=== PATIENT | female | born 1955 | race Caucasian/White ===

== ENCOUNTER 2017-01-01 13:14 | Observation (INO) | payer BC ==
[~2017-01-01] VITALS: Ht 172.7 cm; Wt 69.8 kg
--- NOTE | ~2017-01-01 | DS ---
PATIENT'S NAME: ARJUN [facility] AGE: 61 Y [address] ROOM: [address] [address] LOCATION: GPCU ADMIT DATE: 01/01/2017 Discharge Summary DISCHARGE DATE: 01/02/2017 FAMILY PHYSICIAN: Avinash Oviedo MD ATTENDING PHYSICIAN: Claudio Nolan PRINCIPAL DISCHARGE DIAGNOSIS: Atypical chest pain. SECONDARY DIAGNOSES: 1. Coronary artery disease, mild and nonobstructive. 2. Tobacco addiction. 3. Hypertension. 4. Gastroesophageal reflux disease. 5. Chronic obstructive pulmonary disease. 6. Asthma. CONSULTATIONS: Cardiology, Dr. Leah Mansfield on 01/01/2017. PROCEDURES: Echocardiogram on 01/01/2017. BRIEF SUMMARY OF RESULTS: 1. Normal left and right ventricular size and systolic function with estimated left ventricular ejection fraction of 70% to 75%. 2. Mild concentric left ventricular hypertrophy. 3. Mild dilatation of right atrium. 4. Dilated IVC with poor inspiratory collapse consistent with an elevated right atrial pressure. 5. Mild pulmonary hypertension with right ventricular systolic pressure of 41 mmHg. 6. Cardiac catheterization on 01/02/2017 by verbal report from Dr. Canela. The patient has mild nonobstructive coronary artery disease. BRIEF HISTORY: Ms. Arellano is a 61-year-old, female who presented to [facility] on 01/01/2017 after she presented to an [facility] with chest pain of 1 day duration. She describes the pain as substernal, woke her from sleep on the , persisted during the day and radiated to her back centrally. When I saw her today, she has pain still 1/10 to 2/10 and she points to the right side of the mid to lower sternum and says that there is a pressure like a brick there, dull and constant, but the pain did get somewhat better after GI cocktail. Please review the H and P for further details of her presentation. She had echocardiogram with results as above. She had an essentially negative cath today. In addition, cholesterol total is 197, triglycerides 52, HDL 102, LDL 85, and VLDL 10. She has not been taking a statin at home and has not had PATIENT'S NAME: ARJUN [facility] AGE: 61 Y [address] ROOM: [address] [place], [place] [address] [facility] ADMIT DATE: 01/01/2017 Discharge Summary DISCHARGE DATE: 01/02/2017 FAMILY PHYSICIAN: Avinash Oviedo MD ATTENDING PHYSICIAN: Claudio Nolan a history of high cholesterol. She does smoke, but less than half a pack a day at this time. I did reiterate the importance of tobacco cessation especially for preventing progression of coronary artery disease, development of peripheral vascular disease and any further pulmonary complications. The patient seemed to be receptive to this information and asked her to be agile scrum coach for her as she has already stopped smoking 3 years ago. The patient also has hypertension, GERD and COPD. It is not really an issue during the hospitalization. She will continue on the same medicine for these. INSTRUCTIONS ON DISCHARGE: 1. Diet healthy, fat loss of veggies, low carb. She apparently has lost 50 pounds in the last 3 years with supplements that she takes. 2. Activity as tolerated. She should walk at least 30 minutes every day. 3. Followup, she should see her primary care physician Dr. Oviedo, who is in her [place] within 1 week of discharge. MEDICATIONS AT TIME OF DISCHARGE: 1. Aspirin 81 mg p.o. daily. 2. Hydrochlorothiazide 12.5 mg p.o. daily. 3. Lasix 20 mg p.o. daily. 4. Micardis 80 mg p.o. daily. 5. Plexus Slim which is her weight loss medicine which she reports these are all natural. She has been taking this for 3 years. 6. Proventil 1 to 2 puffs every 4 hours p.r.n. dyspnea. 7. Breo Ellipta 1 puff daily. 8. Flonase 1 spray p.r.n. CONDITION AT DISCHARGE: Good. Did do smoking cessation, counseling and education. Time spent greater than 30 minutes. MANSI POE MD LM/riccil /[id number] d: 01/03/177 t: 05/12/17 1809, DISCHARGE SUMMARY
--- NOTE | ~2017-01-01 | CATH ---
Cardiac Diagnostic Report Demographics Patient Name ARJUN Julio Gender Female Date of 1955 Age 61 year(s) Patient Number [id number] Date of Study 01/02/2017 Visit Number [id number] Room Number G6[address] [place] [id number] Ht 172.72 cm Wt 68.95 kg Referring Judith Curtis Primary Physician Physician Performing [place]en Secondary Physician Physician Leah GANNON Diagnostic [facility] Assisting Physician Physician Leah GANNON Interventional Physician Winemaker Physician Findings and Conclusions Diagnostic Findings and Conclusion Mild non obstructive CAD. Calcified prox LAD without any luminal obstruction, there is 20% lesions in mid LAD, Circ and OM 1 branch. LVEDP is 12 mmHg. Diagnostic Recommendations Continue regular medications. Patient has been instructed to not lift anything more than 5 pounds for 1 week. I will plan on seeing the patient back in 4 week(s). Recommend work up for non-cardiac causes of symptoms. Optimization of medical therapy as an outpatient. Procedure Description The patient was brought to the diagnostic cardiac catheterization-EP laboratory in the fasting, non-sedated state. Informed consent was obtained in the written and verbal form after the risks and benefits were explained. The patient had no further questions and agreed to proceed. The planned puncture-incision site(s) were shaved and prepped with ChloraPrep and draped in the usual sterile manner. Conscious sedation, supplemental oxygen, and pain control medications were delivered by a registered nurse under physician guidance. Surface ECG rhythm, blood pressure measurement, and pulse oximetry were monitored throughout the procedure. Arterial access. The access site was infiltrated with lidocaine. The vessel was entered with the Seldinger technique. A sheath was advanced into the vessel and used for catheter placement. Selective right coronary angiography. A catheter was advanced into the right coronary vessel ostium under fluoroscopic guidance. Contrast was injected by hand. Images were obtained in multiple projections. Selective left coronary angiography. A catheter was advanced into the left coronary vessel ostium under Fluoroscopic guidance. Contrast was injected by hand. Images were obtained in multiple projections. Left heart catheterization. A catheter was advanced across the aortic valve to the left ventricle under fluoroscopic guidance. Resting hemodynamics were obtained. Arterial artery hemostasis was achieved. The patient was transferred to a regular nursing floor via cart accompanied by a nurse. The patient left the laboratory in stable condition. Diagnostic Cath Status: Urgent Procedure Procedure Type Diagnostic procedure:Angiography:, Coronary Angios w/LHC Indications: Shortness of breath and Unstable angina. The procedure was explained in detail to the patient. Risks, complications and alternative treatments were reviewed. Written consent was obtained. Medications Reviewed with Patient prior to Procedure. Angiographic Findings Dominance: Right Cardiac Arteries and Lesion Findings LMCA: Normal (0% Stenosis). LAD: LAD prox calcified. Diag mild luminal irregularities. Lesion on Mid LAD: Mid subsection.30% stenosis . LCx: Lesion on Mid CX: Mid subsection.20% stenosis . Lesion on 1st Ob Farrah: Mid subsection.20% stenosis . RCA: Normal (0% Stenosis). Coronary Tree Procedure Data Procedure Date Date: 01/02/2017Start: :02 AMEnd: 09:19 AM Entry Locations - Retrograde Percutaneous access was performed through the Right Radial artery (Primary location). A 6 Fr sheath was inserted. Unsuccessful closure attempt was performed using: an R band. Hemostasis was successfully obtained using Mechanical Compression. Closure Comments: R band applied to site by . Procedure Medications Order and Administration + + + + + !Time !Medication !Dosage !Route ! + + + + + !01/02/2017 08:57 AM !Versed !1 mg !I.V. ! + + + + + !01/02/2017 08:57 AM !Fentanyl !50 mcg !I.V. ! + + + + + !01/02/2017 09:04 AM !Radial Verapamil !2.5 mg !I.A. ! + + + + + !01/02/2017 09:07 AM !Heparin (ACC_3) !4000 units !I.V. bolus ! + + + + + !01/02/2017 09:12 AM !Nitroglycerin !10 mcg/min !I.V. drip ! + + + + + !01/02/2017 09:20 AM !Nitroglycerin !5 mcg/min !I.V. drip ! + + + + + Devices Used - A5 Fr. BS JR 4 Diag. Catheterwas used for:Right coronary angiography. - A5 Fr. BS JL 3.5 Diag. Catheterwas used for:Left coronary angiography. Contrast Material - Isovue 43142 ml Fluoroscopy Time: Diagnostic: 1:54 minutes. Total: 1:54 minutes. Fluoroscopy Dose: Diagnostic: 294 mGy. Total: 294 mGy. Estimated Blood Loss: 10 ml. Medical History Performed Procedures and Imaging Results - No ACC stress or imaging studies were performed. Risk Factors The patient risk factors include:hypertension, insulin-treated diabetes mellitus, chronic lung disease, last creatinine: 0.7 mg/dl, creatinine clearance: 94.19 ml/min and former tobacco use. Admission Data Admission Date: 01/01/2017 Admission Time: 01:14 PM Admit Source: [facility] Insurance Payors: Private health insurance. Admission Medications + +------+------+ + + + + !Medication !Dosage!Times !Last !Last !Administered !Comments ! ! ! !Per !Delivery !Delivery ! ! ! ! ! !Day !Date !Time ! ! ! + +------+------+ + + + + !Aspirin ! ! ! ! ! ! ! !(any) ! ! ! ! ! ! ! + +------+------+ + + + + !Statin (any)! ! ! ! ! ! ! + +------+------+ + + + + !MICHELLE ! ! ! ! ! ! ! !Inhibitor ! ! ! ! ! ! ! !(any) ! ! ! ! ! ! ! + +------+------+ + + + + !Beta [place]! ! ! ! ! ! ! !(any) ! ! ! ! ! ! ! + +------+------+ + + + + !ARB (any) ! ! ! ! ! ! ! + +------+------+ + + + + Clinical Evaluation Leading to Procedure - The patient's CAD presentation was assessed as: Unstable angina. - The patient's anginal syndrome during the past two weeks was assessed as: Class IV according to the [place] Cardiovascular Society Classification System (CCS). Anti-anginal medications were prescribed during the past two weeks. The medication is: Beta Blockers. Hemodynamics Condition: Rest O2 Consumption: Estimated: 178.67Heart Rate: 78 bpm Pressures (mmHg) +-----+ + !Site !Pressure ! +-----+ + !LV !136/6 ,12 ! +-----+ + !LV !140/6 ,12 ! +-----+ + !AO !140/68 (98) ! +-----+ + !LV !142/7 ,11 ! +-----+ + !AO !149/75 (106) ! +-----+ + Valve Gradients and Areas + +---------+---------+---------+ +---------+ + !Valve !Peak !Mean !Area !Index !Flow !Source ! + +---------+---------+---------+ +---------+ + !Aortic !2 !0 ! ! ! ! ! + +---------+---------+---------+ +---------+ + !Aortic !2 !0 ! ! ! ! ! + +---------+---------+---------+ +---------+ + Shunts Oxygen Values O2 Capacity 156.4 O2 Consumption 178.67 Signatures dtt: LEAH DAVEY dtd: 01/02/17 0902 Physician Self Edit
--- NOTE | ~2017-01-01 | HP ---
PATIENT'S NAME: MICHELLE DÍAZ [facility] AGE: 61 Y [address] ROOM: [place] [address] [facility] ADMIT DATE: 01/01/2017 History & Physical DISCHARGE DATE: FAMILY PHYSICIAN: PHYSICIAN, UNKNOWN ATTENDING PHYSICIAN: Claudio Nolan DATE OF SERVICE: CHIEF COMPLAINT: Atypical chest pain. HISTORY OF PRESENTING ILLNESS: This is a 61-year-old white female with previous history of COPD, hypertension, and ongoing tobacco dependence, who was transferred to [facility] from [place] with chest pain that began yesterday. She describes a substernal pressure, that began when she awoke from sleep yesterday morning. It persisted over the course of the day and seemed to radiate through to her back. States it seems to be centered in her spine. She does admit to feeling weak and clammy and did have some sweats intermittently over the course of the day. She has been coughing, but it is nonproductive. She denies any associated nausea and has not had any problems with chewing or swallowing. Today, because the pain persisted, she presented to the [place] [facility]. Initial cardiac enzymes were negative, but her clinical history was felt to be suspicious. Dr. Canela, diesel engine fitter, was contacted by telephone, and it was requested she be transferred here for definitive evaluation and management. She denies fevers but has had some minor chills and sweats as described above. She admits that she has not actually taken her temperature. No headaches, but she does feel a little dizzy. She has not fallen or lost consciousness. She denies blurred vision or scotomata. She denies other back pain and no abdominal pain. Her appetite has been good otherwise. She stools and voids normally. Denies any dysuria, frequency, urgency, or hematuria. No numbness or tingling in her lower extremities, but she does have some tingling in her right arm. She does intermittently have some swelling in her feet. She takes a diuretic for that. She has been otherwise compliant with her medications. ALLERGIES: NO KNOWN DRUG ALLERGIES. ILLNESSES: 1. Essential hypertension. 2. COPD. 3. Tobacco dependence. PATIENT'S NAME: MICHELLE DÍAZ [facility] AGE: 61 Y [address] ROOM: [address] [place], [place] [address] LOCATION: GPCU ADMIT DATE: 01/01/2017 History & Physical DISCHARGE DATE: FAMILY PHYSICIAN: PHYSICIAN, UNKNOWN ATTENDING PHYSICIAN: Claudio Nolan 4. History of DVT. 5. History of ovarian cyst, status post resection and hysterectomy. 6. Appendicitis with subsequent appendectomy in 2016. CURRENT MEDICATIONS: 1. Albuterol HFA 2 puffs p.o. q.6 hours p.r.n. 2. Breo Ellipta 100/25 one puff p.o. daily p.r.n. 3. Lasix 20 mg p.o. daily p.r.n. 4. Micardis HCT 80/12.5 one tab p.o. daily. FAMILY HISTORY: Significant for lung cancer in her father, who suffered renal failure and a stroke. Mother also had kidney cancer and suffered a stroke. REVIEW OF SYSTEMS: As per HPI. All other organ systems reviewed and are negative. She did have a negative stress test about 5 years ago, which sounds like treadmill Cardiolite. PHYSICAL EXAMINATION: VITAL SIGNS: Temperature is 98.3, pulse 107, respirations 17, blood pressure 150/91, O2 saturation 96% on room air. GENERAL: She is frail, anxious, but cooperative, lying in the bed, in no acute distress. SKIN: Supple. [place], warm, dry. No obvious rashes. HEENT: Otherwise normocephalic. Sclerae nonicteric. Pupils equal, round, and reactive to light and accommodation. Extraocular movements appear intact. Nasal turbinates normal in appearance. Oropharynx clear. Mucous membranes are pink and moist. NECK: Supple. No masses or adenopathy. No thyromegaly. No JVD. No carotid bruits are heard. CHEST: Chest wall is symmetrical. HEART: Tachycardic but regular. LUNGS: Diminished with long expiratory phase. No michelle wheezes. No rales or consolidation. ABDOMEN: Soft, protuberant, nontender. Bowel sounds present. No mass. No hepatosplenomegaly. and RECTAL: Not done. EXTREMITIES: Display trace pitting edema. No cyanosis. NEUROLOGICAL: Cranial nerves 2 through 12 appear grossly intact. Sensation appears normal. Strength is 5/5 bilaterally in upper and lower extremities. DTRs are 1 to 2+ symmetrical. Gait is not observed. LABORATORY AND X-RAY DATA: A 12-lead EKG shows sinus tachycardia without any acute ST abnormalities. PATIENT'S NAME: MICHELLE DÍAZ [facility] AGE: 61 Y [address] ROOM: [address] [place], [place] [address] [facility] AD[facility] DATE: 01/01/2017 History & Physical DISCHARGE DATE: FAMILY PHYSICIAN: PHYSICIAN, UNKNOWN ATTENDING PHYSICIAN: Claudio Nolan Cardiac enzymes revealed a troponin I 0.1, CPK of 57, CK-MB 0.6. A CBC was significant for an elevated white blood cell count of 16.2, hemoglobin 13.3, hematocrit 40.0, platelets 268. Chemistries revealed BUN and creatinine of 18 and 0.81 respectively, sodium and potassium of 137 and 4.9, chloride and CO2 of 102 and 22, calcium is 9.9. AST and ALT of 22 and 24 respectively, bilirubin is 0.6. A D-dimer was within the normal range. CT scan of the chest with IV contrast revealed multiple subcentimeter pulmonary nodules bilaterally without any evidence for consolidations or pulmonary edema. Incidentally noted is a left liver lobe lesion at 1.1 cm. Clinical followup and 12-month CT, re-examination in 12 months was recommended. ASSESSMENT AND PLAN: 1. Chest pain. Intermediate suspicion for acute coronary syndrome. We will admit for observation. She had been placed on the chest pain pathway. We will monitor on telemetry and obtain serial enzymes. She will be maintained on heparin and nitroglycerin drip for now. Dr. Canela, Cardiology, is already aware of the case and will be formally consulted to consider investigational options. We will plan for echo in the morning. We will also plan to get some additional metabolic workup and lipid panel and follow up on that when the results are known. In the meantime, plan to resume aspirin 81 mg daily, continue with beta-shawn therapy, angiotensin receptor shawn therapy, and initiate statin therapy with Lipitor. We will manage her pain symptomatically and look for other diagnostic possibilities. 2. Essential hypertension. Appears to be adequately controlled. We will continue her home antihypertensive regimen, add the beta-shawn therapy carefully and monitor. 3. Chronic obstructive pulmonary disease without oxygen dependence, currently clinically stable. We will encourage good pulmonary hygiene. Urged smoking cessation (see below). 4. Multiple pulmonary nodules. Too small to characterize. Differential diagnosis remains relatively broad at this point. She is aware of them as of now. We will plan for clinical followup and perhaps repeat CT scan imaging in 6 months to a year as described above. 5. Tobacco dependence. Discussed smoking cessation. She is in a precontemplative phase. Discussed rationale and treatment options, and she expressed that she might be interested. 6. History of deep venous thrombosis. No clinical evidence of that now. In view of the negative D-dimer and low clinical suspicion, we will hold off on any additional imaging studies. 7. Deep venous thrombosis prophylaxis. She will be fully heparinized at least for now, and we will plan to mobilize her once she is physically able. PATIENT'S NAME: MICHELLE DÍAZ [facility] AGE: 61 Y [address] ROOM: [place] [address] LOCATION: [facility] ADMIT DATE: 01/01/2017 History & Physical DISCHARGE DATE: FAMILY PHYSICIAN: PHYSICIAN, UNKNOWN ATTENDING PHYSICIAN: Claudio Nolan MD DAVID GARCIA/daria /[id number] D: [id number] T: [id number] HISTORY & PHYSICAL
--- NOTE | ~2017-01-01 | ECHO ---
Transthoracic Echocardiography Report (TTE) Demographics Patient Name MICHELLE DÍAZ Date of Study 01/01/2017 Patient Number [id number] Visit Number [id number] Date of 1955 Room Number [address] Gender Female Number Age 61 year(s) Referring Ovidio Pearl MD Charge Master Coordinator Sabrina Martinez, Physician RT,RVT,RDCS Physician Interpreting Shyla Lynn MD Sourcing Specialist Physician Supervising Ordering Shyla Lynn MD, MD/MLP Physician Nurse Stress Crown Attacher Conclusions Contractility Score Summary Normal Left Ventricular contractility was noted. Summary Normal LV/RV size and systolic function. The estimated left ventricular ejection fraction is 70-75%. Mild concentric left ventricular hypertrophy. The right atrium is mildly dilated. Dilated IVC with poor inspiratory collapse consistent with elevated RA pressure. There is mild pulmonary hypertension. The pulmonary pressure (RVSP) is 41 mmHg. Procedure Type of Study TTE procedure:2D Echocardiogram, M-Mode, Doppler , Color Doppler. Procedure Date Date: 01/01/2017 Start: 03:52 PM Study Location: Inpatient Portable Technical Quality: Good visualization Indications:Chest pain. Appropriate Use Criteria: 9 Patient Status: Routine HR: 86 bpm BP: 151/67 mmHg M-Mode/2D Measurements LV Diastolic Dimension: 3.94 cm LV Systolic Dimension: 2.13 cm LV Septum Diastolic: 1.24 cm LV Septum Systolic: 1.1 cm LV PW Diastolic: 1.39 cm LV PW Systolic: 1.87 cm Cardiac Output: 8.29 l/min AO Root Dimension: 2.6 cm RV Diastolic Dimension: 3.13 cm LA Dimension: 3.7 cm EF Estimated: 70 % LA volume: 50 ml RV Base: 3.5 cm LVOT: 1.9 cm RV Mid: 2.7 cm LVOT VTI: 34 cm RV Length: 5.4 cm LV Stroke volume: 96.35 ml Doppler Measurements AV Peak Velocity: 2.01 m/s MV Peak E-Wave: 0.78 m/s AV Peak Gradient: 16.16 mmHg MV Peak A-Wave: 0.79 m/s AV Mean Gradient: 7 mmHg MV E/A Ratio: 0.99 LVOT Peak Velocity: 1.89 m/s MV P1/2t: 93 msec TR Gradient:24.6 mmHg PV Peak Velocity: 1.19 m/s Estimated RAP:10 mmHg PV Peak Gradient: 5.66 mmHg Estimated RVSP: 35 mmHg Estimated PASP: 34.6 mmHg E' Septal Velocity: 0.09 m/s A' Septal Velocity: 0.1 m/s MV E/E' Ratio: 8.6 Findings Left Ventricle Mild concentric left ventricular hypertrophy. Right Ventricle Normal right ventricle structure and function. Left Atrium Normal left atrial size. Right Atrium The right atrium is mildly dilated. Dilated IVC with poor inspiratory collapse consistent with elevated RA pressure. Mitral Valve Normal mitral valve structure and function. Aortic Valve Normal aortic valve structure and function. Tricuspid Valve There is mild pulmonary hypertension. The pulmonary pressure (RVSP) is 41 mmHg. Pulmonic Valve Normal pulmonic valve structure and function. Pericardial Effusion No evidence of pericardial effusion. Miscellaneous Visualized portions of the aortic root and ascending aorta appear normal in size. Pleural Effusion No evidence of pleural effusion. Contractility Score LV regional wall motion:(0-Non visualized 1-Normal 2-Hypokinesis 3-Akinesis 4-Dyskinesis 5-Aneurysm) Signature dtt: MULU DAVEY dtd: 01/01/17 1552 Physician Self Edit
--- NOTE | ~2017-01-01 | CON ---
PATIENT'S NAME: ARJUN [facility] Nori [facility] AGE: 61 Y [address] ROOM: [place] [address] LOCATION: GPCU ADMIT DATE: 01/01/2017 Consultation DISCHARGE DATE: FAMILY PHYSICIAN: PHYSICIAN, UNKNOWN ATTENDING PHYSICIAN: Claudio Nolan DATE OF CONSULTATION: 01/01/2017 REFERRING PHYSICIAN: LEAH DAVEY MD REASON FOR CARDIOLOGY CONSULTATION: Chest pain. HISTORY OF PRESENT ILLNESS: This is a 61-year-old female, who initially presented to the [place] [facility] with complaints of constant chest pain over the last 24 hours. She states the pain began in her anterior chest and has continued to progressively worsen and is now radiating to her posterior back between her shoulder blades. She described the pain as heavy and constant. She did undergo chest x-ray as well as CT in [place]. Her cardiac enzymes here are negative for any acute changes, and her EKG is stable without any acute ST changes noted. She denies dizziness, headache, nausea, vomiting, or palpitations. She does have complaints of cough and congestion. PAST MEDICAL HISTORY: 1. Hypertension. 2. COPD and asthma. 3. Chronic tobacco abuse. 4. GERD. 5. Crohn disease. 6. History of kidney stones. 7. History of DVT with the last known one in 1989. PAST SURGICAL HISTORY: 1. Hysterectomy. 2. Tonsillectomy. 3. Appendectomy. FAMILY HISTORY: Both of her parents had a history of stroke. Her father had a history of lung cancer, and her mother had a history of renal cancer. SOCIAL HISTORY: The patient is a current daily cigarette smoker. She has smoked 1 pack per day for the last 45 years. She also admits to alcohol use on 7 days a week, and on those days, she will have up to 2 drinks total. She denies illicit PATIENT'S NAME: ARJUN [facility] AGE: 61 Y [address] ROOM: [address] [address] LOCATION: GPCU ADMIT DATE: 01/01/2017 Consultation DISCHARGE DATE: FAMILY PHYSICIAN: PHYSICIAN, UNKNOWN ATTENDING PHYSICIAN: Claudio Nolan drug use. CURRENT MEDICATIONS: 1. Heparin IV per ACS protocol. 2. Nitroglycerin IV with titration parameters for chest pain. 3. Metoprolol 25 mg p.o. twice daily. 4. NicoDerm Patch 21 mg transdermally daily. MEDICATION ALLERGIES: No known medication allergies. REVIEW OF SYSTEMS: Pertinent positive review of systems listed in the HPI. All other review of systems evaluated and negative. DIAGNOSTICS: CMS evaluation shows a sodium of 138, potassium 4.2, BUN of 15, creatinine 0.8, glucose of 85. She has a magnesium of 2.4. Lipid evaluation shows a total cholesterol of 208, triglycerides 69, HDL of 98, and LDL of 97. Cardiac enzymes show a CPK of 57, CK-MB of less than 0.5, and troponin I of less than 0.04. Her echocardiogram shows a normal left ventricle and right ventricular size and systolic function. She has an estimated left ventricular ejection fraction of 70% to 75%. The right atrium is mildly dilated, and she has a dilated IVC with poor inspiratory collapse. She also has mild pulmonary hypertension with an RVSP of 41 mmHg. PHYSICAL EXAMINATION: VITAL SIGNS: Temperature 98.2, pulse 77, respirations 18, blood pressure 172/81, and O2 saturation 97% on room air. The patient weighs 69.1 kg. SKIN: [place], warm, and dry. EYES: Sclerae clear. No xanthelasmas. ENT: Oral mucosa is pink and moist. No jugular venous distention. No carotid bruits. CHEST: Respirations are even and unlabored. Lung sounds do show bilateral coarseness, specifically at the bases. HEART: Regular rate and rhythm. Normal S1, S2. No murmurs, rubs, or gallops. ABDOMEN: Soft, nontender. MUSCULOSKELETAL: Gait is normal. EXTREMITIES: Peripheral pulses palpable. No clubbing or cyanosis noted. Does have trace lower extremity edema present. PSYCH: Alert and oriented. Mood and affect are appropriate. PATIENT'S NAME: MICHELLE DÍAZ [facility] AGE: 61 Y [address] ROOM: [address] [place] [address] [facility] ADMIT DATE: 01/01/2017 Consultation DISCHARGE DATE: FAMILY PHYSICIAN: PHYSICIAN, UNKNOWN ATTENDING PHYSICIAN: Claudio Nolan IMPRESSION AND PLAN: Per Dr. Leah Davey: 1. Unstable angina: Her cardiac enzymes once again are currently negative, and her EKG is stable with any acute changes suggestive of acute coronary ischemia. Her symptoms are concerning for coronary artery disease and the plan will be to proceed with a selective coronary angiography and possible percutaneous intervention in the a.m. with Dr. Leah Davey. 2. Chronic obstructive pulmonary disease with chronic tobacco abuse, not currently requiring O2 supplementation. 3. Hyperlipidemia. We will evaluate her for a statin. Overall, this is a 61-year-old female, who is still having complaints of increased chest pain as well as hypertension with a nitroglycerin drip in place. We will plan to proceed with heart catheterization in the a.m., but if her pain does not resolve adequately overnight, we may need to take her to the catheterization suite sooner. Risks and benefits of this procedure have been discussed with the patient as well as Dr. Leah Davey, and the patient is agreeable to proceed with catheterization. We will continue to monitor, evaluate, and treat as appropriate. Thank you for this consult. Thank you for allowing [facility] to interact in the care of this patient. JON RODRIGUEZ APRN FOR MD BENY DAO/daria /[id number] d: 01/02/17 0126 t: 01/03/17 1510, CONSULTATION REPORT
[~2017-01-01 13:14] MED LIST changes: -ASPIRIN LO-DOSE81 MG PO; -BREO ELLIPTA 11 EACH INH; -FLONASE 50 MCG/16 GM NOSE; -HYDRODIURIL12.5 MG PO; -LASIX20 MG PO; -MICARDIS80 MG PO; -PLEXUS SLIM PO; -PROVENTIL OR V6.7 GM INH
[2017-01-01] MEDS ORDERED: ASPIRIN LO-DOSE81 MG PO (14:02)
[2017-01-01] MEDS ORDERED: BREO ELLIPTA 11 EACH INH (14:03)
[2017-01-01] MEDS ORDERED: MICARDIS80 MG PO (14:03)
[2017-01-01] MEDS ORDERED: HYDRODIURIL12.5 MG PO (14:03)
[2017-01-01] MEDS ORDERED: PROVENTIL OR V6.7 GM INH (14:04)
--- NOTE | 2017-01-01 14:04 | NUR ---
Pt is 61 y/o female admit for chest pain for hospitalist. Pt alert and oriented x3. No allergies. Hx htn,DVT x3,COPD,gerd,hx chest pain. Pt resides at home with her . Came via ambulance from [place] ED. PT states she started having chest pain yesterday am which got worse throughout the day. She states she called the clinic this am to make an appt and when she arrived they sent her to the ED. She has heparin running IV and is awaiting a cardiology consult.
[2017-01-01] MEDS ORDERED: FLONASE 50 MCG/16 GM NOSE (14:05)
[2017-01-01] MEDS ORDERED: LASIX20 MG PO (14:05)
[2017-01-01] MEDS ORDERED: PLEXUS SLIM PO (14:05)
[2017-01-01 14:39] LABS: BASOPHIL % 0.4 %; EOSINOPHIL # 0.2 K/uL (0.0-0.5); EOSINOPHIL % 1.7 %; HEMATOCRIT 35.5 % (33.0-46.0); HEMOGLOBIN 12.1 g/dL (10.0-15.0); IMMATURE GRANULOCYTE % 0.3 %; LYMPHOCYTE # 2.1 K/uL (0.8-4.0); LYMPHOCYTE % 20.1 %; MCH 34.1 pg (27.0-34.0); MCHC 34.1 gm/dL (32.0-36.5); MONOCYTE # 0.6 K/uL (0.0-1.0); MONOCYTE % 5.8 %; MPV 8.7 fl (9.4-12.4); NEUTROPHIL # (ANC) 7.4 K/uL (1.8-7.8); NEUTROPHIL % 71.7 %; NRBC % 0 /100WBC (0-0.00); PLATELET COUNT 225 K/uL (150-450); RBC 3.55 M/uL (3.50-5.50); RDW-CV 12.7 % (11.9-14.6); WBC 10.3 K/uL (4.0-11.0)
[2017-01-01 14:48] LABS: INR - (THERAPEUTIC) 0.95 (0.92-1.07); PTT 56 SECONDS (25-32)
[2017-01-01 15:00] LABS: ALBUMIN 3.5 gm/dL (3.5-5.0); ALK PHOS 74 IU/L (33-138); ALT 15 IU/L (12-78); ANION GAP 11.2 (10.0-19.0); AST 14 IU/L (10-40); BLOOD UREA NITROGEN 15 mg/dL (6-24); CALCIUM 8.5 mg/dL (8.5-10.5); CHLORIDE 105 mMol/L (96-110); CO2 26 mMol/L (22-32); CPK 57 IU/L (21-215); CREATININE 0.8 mg/dL (0.5-1.1); ESTIMATED GFR (MDRD EQUATION) > 60; MAGNESIUM 2.4 mg/dL (1.8-2.6); POTASSIUM 4.2 mMol/L (3.7-5.1); SODIUM 138 mMol/L (135-145); TOTAL BILIRUBIN 0.4 mg/dL (0.0-1.5); TOTAL PROTEIN 6.7 g/dL (6.0-8.4)
[2017-01-01 16:18] LABS: BILIRUBIN URINE NEGATIVE (NEGATIVE); BLOOD URINE 10 /UL (NEGATIVE); COLOR URINE YELLOW (YELLOW); GLUCOSE URINE NEGATIVE (NEGATIVE); KETONE URINE NEGATIVE (NEGATIVE); LEUKOCYTES URINE NEGATIVE /UL (NEGATIVE); NITRITE URINE NEGATIVE (NEGATIVE); PROTEIN URINE NEGATIVE (NEGATIVE); SPEC GRAVITY URINE 1.005 (1.003-1.035); TURBIDITY URINE CLEAR (CLEAR); UROBILINOGEN URINE NORMAL (NORMAL)
[2017-01-01 16:26] LABS: BACTERIA URINE NEGATIVE (NEGATIVE); EPITHELIAL URINE 0-2 #/HPF (NEGATIVE); WBC URINE NEGATIVE #/HPF (NEGATIVE)
--- NOTE | 2017-01-01 16:51 | NUR ---
Significant Event: PATIENT PRESENTS TO PCU WITH NITRO AND HEPARIN GTT EN ROUTE WITH CHEST PAIN RATING 4/10. NOW NITRO GTT AT 20MCG/MIN WITH CHEST PAIN 3/10 THIS AFTERNOON. SBP AT HIGH 170'S NOW 110-130'S. HEPARIN GTT AT 800 UNITS/HR WITH PTTHP AT 1900. PIV TO L) HAND. AFEBRILE. LUNGS CLEAR/DIM ON RA. ECHO TODAY WITH ORDERS TO KEEP NPO AFTER MN FOR HEART CATH IN AM. PERMITS SIGNED AND ON CHART. NS AT TKO TO INCREASE TO 100ML/HR AT 0600. Follow up: NPO AFTER MN. EKG IN AM. NS TO INCREASE TO 100ML/HR AT 0600. ASPIRIN, BENADRYL AND VALIUM TO BE GIVEN MEASURING CLERK PRE-CATH. PTTHP AND NEXT SET OF ENZYMES AT 1900 AND 1999.
[2017-01-01 19:50] LABS: CPK 59 IU/L (21-215)
[2017-01-02 02:19] LABS: BASOPHIL # 0.1 K/uL (0.0-0.2); BASOPHIL % 0.7 %; EOSINOPHIL # 0.4 K/uL (0.0-0.5); EOSINOPHIL % 4.2 %; HEMOGLOBIN 11.5 g/dL (10.0-15.0); IMMATURE GRANULOCYTE % 0.2 %; LYMPHOCYTE # 2.4 K/uL (0.8-4.0); LYMPHOCYTE % 27.1 %; MCH 34.2 pg (27.0-34.0); MCHC 33.8 gm/dL (32.0-36.5); MCV 101.2 fl (83.0-98.0); MONOCYTE # 0.7 K/uL (0.0-1.0); MONOCYTE % 8.1 %; NEUTROPHIL # (ANC) 5.3 K/uL (1.8-7.8); NEUTROPHIL % 59.7 %; NRBC % 0 /100WBC (0-0.00); PLATELET COUNT 208 K/uL (150-450); RBC 3.36 M/uL (3.50-5.50); RDW-CV 12.7 % (11.9-14.6); WBC 8.9 K/uL (4.0-11.0)
[2017-01-02 02:37] LABS: CPK 60 IU/L (21-215)
[2017-01-02 02:38] LABS: INR - (THERAPEUTIC) 0.96 (0.92-1.07); PROTIME 10.1 SECONDS (9.8-11.4)
[2017-01-02 02:42] LABS: ALBUMIN 3.1 gm/dL (3.5-5.0); ALK PHOS 65 IU/L (33-138); ALT 13 IU/L (12-78); ANION GAP 12.1 (10.0-19.0); AST 20 IU/L (10-40); BLOOD UREA NITROGEN 14 mg/dL (6-24); CALCIUM 8.3 mg/dL (8.5-10.5); CHLORIDE 107 mMol/L (96-110); CO2 23 mMol/L (22-32); CREATININE 0.7 mg/dL (0.5-1.1); ESTIMATED GFR (MDRD EQUATION) > 60; POTASSIUM 4.1 mMol/L (3.7-5.1); SODIUM 138 mMol/L (135-145); TOTAL BILIRUBIN 0.4 mg/dL (0.0-1.5); TOTAL PROTEIN 6.3 g/dL (6.0-8.4)
--- NOTE | 2017-01-02 05:09 | NUR ---
Significant Event: PATIENT IS A/O X3. VSS. HR 70'S. SBP 110-130'S. AFEBRILE. 02 SATS IN MID 90'S ON RA. C/O 3/10 PAIN BUT TOLERABLE DOWN TO 15MCG IV NITRO. LUNGS CLEAR/DIM THROUGHOUT. UP WITH SBA. BOWELS ACTIVE. VOIDS PER RESTROOM. RIGHT AC IV SL. LEFT HAND IV WITH NS TKO TO BE INCREASED TO 100 ML/HR AT 0600. HEPARIN RUNNING AT 1000 UNITS/HR WITH NEXT PTTHP AT 0800. NPO SINCE MIDNIGHT. Follow up: HEART CATH SCHEDULED AT 0900 THIS AM.
[2017-01-02 08:32] LABS: CPK 54 IU/L (21-215)
--- NOTE | 2017-01-02 13:02 | NUR ---
Introduced self and role of care management to patient and her . They live in [place]. She states that she is able to do all her own ADL's. Her states that he will be available to assist as needed. She plans on returning home on discharge. They deny any needs at this time. Will continue to follow.
--- NOTE | 2017-01-02 17:32 | NUR ---
Discharge Summary: Patient A/O x 3. Vital signs stable: HR 75, RR 20, BP 129/77, O2 saturation 96% on room air, and temperature 98.1F. Denies pain or discomfort. Right radial site soft with CSM WNL. Discharge instructions included: post-heart catheterization cares through right radial site, signs/symptoms to be alert for, healthy diet, following up with PCP in 1 week, and smoking cessation. Denies any further questions at this time. Left PCU at 1600 to [facility] entrance and then home to self care with . No other needs at time of discharge. Krystyna RO
== END 2017-01-02 16:00 | disposition disaster alternative care site (69) ==
LOC: GPCU 13:14
PROVIDERS: Nurse Practitioner; ADMIT Family Medicine
DX: I25.110 Atherosclerotic heart disease of native coronary artery with unstable angina pectoris (principal); I10 Essential (primary) hypertension; K21.9 Gastro-esophageal reflux disease without esophagitis; J44.9 Chronic obstructive pulmonary disease, unspecified; J45.909 Unspecified asthma, uncomplicated; E78.5 Hyperlipidemia, unspecified; F17.210 Nicotine dependence, cigarettes, uncomplicated; Z90.49 Acquired absence of other specified parts of digestive tract; Z90.710 Acquired absence of both cervix and uterus; Z98.890 Other specified postprocedural states; Z79.82 Long term (current) use of aspirin; Z79.899 Other long term (current) drug therapy
CPT/HCPCS: G0378; J1644; J2250; J3010; J7030

== ENCOUNTER → 2017-01-01 | Outpatient (CLI) | payer BC ==
[~2017-01-01] MED LIST: ASPIRIN LO-DOSE81 MG PO; BREO ELLIPTA 11 EACH INH; FLONASE 50 MCG/16 GM NOSE; HYDRODIURIL12.5 MG PO; LASIX20 MG PO; MICARDIS80 MG PO; PERCOCET 5-3251 EACH PO; PLEXUS SLIM PO; PROVENTIL OR V6.7 GM INH; TELMISARTAN-HC1 EAC1 PO
== END | disposition disaster alternative care site (69) ==
LOC: GAMB 12:27
DX: R07.89 Other chest pain (principal)
CPT/HCPCS: A0425; A0426